=== PATIENT | female | born 1990 | race African-American/Black ===

== ENCOUNTER 2018-11-29 18:38 | Emergency (ER) | payer MEDICAID ==
[~2018-11-29] VITALS: Ht 172.7 cm; Wt 90.7 kg
[~2018-11-29 18:38] MED LIST: ALBUTEROL; ALBUTEROL SULF8.5 GM INH; ALBUTEROL2.5 MG/3 M HHN; ANTI-ITCH28 GM TOPIC; AZITHROMYCIN250 MG ORAL; DEXAMETHASONE2 MG PO; KEFLEX500 MG ORAL; PREDNISONE20 MG ORAL; PREDNISONE20 MG PO; ZITHROMAX250 MG PO
[2018-11-29] MEDS ORDERED: Ipratropium 0.02% Inh Soln 2.5ml UD HHN ONE (18:45)
[2018-11-29] MEDS ORDERED: Albuterol ud Inhalation HHN ONE (18:45)
[2018-11-29] MEDS ORDERED: Albuterol ud Inhalation ONE (18:46)
[2018-11-29] MEDS ORDERED: Ipratropium 0.02% Inh Soln 2.5ml UD ONE (18:46)
--- NOTE | 2018-11-29 18:50 | NUR ---
ED Nurse Note: Late entry. PT drove self to ED, ambulates without any assistive devices, wheezing on all lobes, received PT during Albuterol treatment, RT Jg at bedside, BP 132/78, HR 115 PT observed crying. Will continue to monitor.
[2018-11-29 18:58] VITALS: BP 132/78
--- NOTE | 2018-11-29 19:11 | NUR ---
ED Nurse Note: PT vomitted 125cc in bag.
--- NOTE | 2018-11-29 19:12 | NUR ---
HAND-OFF: Report and PT given to MARYCARMEN Whitney.
[2018-11-29 20:34] LABS: APPEARANCE,URINE CLOUDY; BILIRUBIN, URINE NEGATIVE (NEGATIVE); GLUCOSE, URINE (UA) NEGATIVE (NEGATIVE); KETONES,URINE NEGATIVE (NEGATIVE); LEUKOCYTE ESTERASE ,URINE 3+ (NEGATIVE); NITRITE,URINE NEGATIVE (NEGATIVE); PH,URINE 5 (4.5-8.0); PROTEIN,URINE 1+ (NEGATIVE); UROBILINOGEN,URINE 1 MG/DL (0.0-1.0)
[2018-11-29 20:38] LABS: COLOR,URINE YELLOW
--- NOTE | 2018-11-29 22:09 | Emergency Room Report ---
History of Present Illness General Chief Complaint: Asthma Source: Patient Present Illness HPI This patient has a history of asthma. She states that about an hour prior to arrival she developed shortness of breath and wheezing. She states that she is out of her albuterol. She denies recent illness. Denies cough or congestion. She denies fever chills. She denies nausea or vomiting. She also complains of dysuria for the past couple days. She has no other complaints. Allergies: Coded Allergies: AMOXICILLIN (Verified Allergy, Severe, 12/29/12) Patient History Past Medical History: see triage record, asthma Past Surgical History: none Pertinent Family History: none Social History: Denies: smoking, alcohol use, drug use Last Menstrual Period: 10/29/18 Reviewed Nursing Documentation: PMH: Agreed; PSxH: Agreed Nursing Documentation-PMH Past Medical History: No History, Except For Hx Cardiac Problems: No Hx Hypertension: No Hx Pacemaker: No Hx Asthma: Yes Hx COPD: No Hx Diabetes: No Hx Cancer: No Hx Gastrointestinal Problems: No Hx Dialysis: No Hx Neurological Problems: No Hx Cerebrovascular Accident: No Hx Seizures: No Review of Systems All Other Systems: negative except mentioned in HPI Physical Exam Vital Signs Date Time Temp Pulse Resp B/P (MAP) Pulse Ox O2 Delivery O2 Flow Rate FiO2 11/29/18 18:41 97.9 135 26 132/78 (96) 99 Room Air 11/29/18 18:56 21 Sp02 EP Interpretation: reviewed, normal General Appearance: no apparent distress, alert, GCS 15, non-toxic Head: normocephalic, atraumatic Eyes: bilateral eye normal inspection, bilateral eye PERRL ENT: hearing grossly normal, normal pharynx, no angioedema, normal voice Neck: full range of motion, supple/symm/no masses Respiratory: chest non-tender, no respiratory distress, no retraction, no accessory muscle use, wheezing, expiration Cardiovascular #1: regular rate, rhythm, no edema Rectal: deferred Musculoskeletal: back normal, gait/station normal, normal range of motion, non- tender Neurologic: alert, oriented x3, responsive, motor strength/tone normal, sensory intact, speech normal Psychiatric: judgement/insight normal, memory normal, mood/affect normal, no suicidal/homicidal ideation Skin: no rash, normal color Medical Decision Making Diagnostic Impression: Primary Impression: Asthma attack Additional Impression: UTI (urinary tract infection) ER Course This patient has a clinical presentation consistent with asthma exacerbation. Patient has a history of asthma and has wheezing on physical exam. The patient was given albuterol and Atrovent nebulizer treatments. The patient was also given prednisone orally. The patient had significant improvement in subjective shortness of breath. The patient's lung exam improved significantly. The patient was given close return precautions and followup instructions. Laboratory Tests Test 11/29/18 20:00 Urine Color Yellow Urine Appearance Cloudy Urine pH 5 (4.5-8.0) Urine Specific [place] 1.025 (1.005-1.035) Urine Protein 1+ (NEGATIVE) H Urine Glucose (UA) Negative (NEGATIVE) Urine Ketones Negative (NEGATIVE) Urine Blood 2+ (NEGATIVE) H Urine Nitrite Negative (NEGATIVE) Urine Bilirubin Negative (NEGATIVE) Urine Urobilinogen 1 MG/DL (0.0-1.0) H Urine Leukocyte Esterase 3+ (NEGATIVE) H Urine RBC 15-20 /HPF (0 - 2) H Urine WBC 10-15 /HPF (0 - 2) H Urine Squamous Epithelial Cells Many /LPF (NONE/OCC) H Urine Bacteria Many /HPF (NONE) H Chest X-Ray Diagnostic Results Chest X-Ray Diagnostic Results : Chest X-Ray Ordered: Yes # of Views/Limited/Complete: 1 View Indication: Shortness of Breath EP Interpretation: Yes Interpretation: no consolidation, no effusion, no pneumothorax, no acute cardiopulmonary disease Impression: No acute disease Electronically Signed by: Candida Zacarias DO Last Vital Signs Date Time Temp Pulse Resp B/P (MAP) Pulse Ox O2 Delivery O2 Flow Rate FiO2 11/29/18 20:01 97.9 11/29/18 19:01 109 31 Room Air 11/29/18 18:58 132/78 99 11/29/18 18:56 21 Status: improved Disposition: HOME, SELF-CARE Condition: Improved Referrals: NOT CHOSEN [facility]/,REFERRING (PCP) Patient Instructions: Asthma, Adult Candida Zacarias DO Nov 29, 2018 22:09
--- NOTE | 2018-11-29 22:13 | NUR ---
ED Nurse Note: Pt is side laying with eyes closed, non-labored breathing, no signs of distress. Will continue to monitor
[2018-11-29] MEDS ORDERED: NITROFURANTOIN100 M2 ORAL (22:19)
[2018-11-29] MEDS ORDERED: PREDNISONE20 MG ORAL (22:19)
[2018-11-29] MEDS ORDERED: ALBUTEROL SULF8.5 GM INH (22:19)
[2018-11-29] MEDS ORDERED: ALBUTEROL2.5 MG/3 M HHN (22:31)
[2018-11-29 22:35] VITALS: BP 132/78
--- NOTE | 2018-11-29 22:35 | NUR ---
ER DISCHARGE NOTE: Patient is cleared to be discharged per ERMD, pt is aox4, on room air, with stable vital signs. pt was given dc and prescription instructions, pt was able to verbalize understanding, pt id band removed. pt is able to ambulate with steady gait. pt took all belongings.
--- NOTE | 2018-11-30 10:28 | Diagnostic Imaging Report ---
Indication: Shortness of breath Technique: XRAY Chest 1v Comparison: None Findings: Heart size and mediastinal contours within normal limits. There is no focal airspace consolidation, pleural effusion or pneumothorax. No acute osseous normality. Abdominal shield in place. Impression: No radiographic evidence of acute cardiopulmonary disease.
== END 2018-11-29 22:35 | disposition home or self-care (01) ==
LOC: EMR 19:14
DX: J45.901 Unspecified asthma with (acute) exacerbation (principal); N39.0 Urinary tract infection, site not specified; Z88.1 Allergy status to other antibiotic agents; Z79.51 Long term (current) use of inhaled steroids
CPT/HCPCS: 71045; 81001; 87086; 94640; 94664; J7512; Z7502; 99284

== ENCOUNTER 2019-02-13 16:12 | Emergency (ER) | payer MEDICAID ==
[~2019-02-13] VITALS: Ht 160 cm; Wt 81.6 kg
[~2019-02-13 16:12] MED LIST changes: +NITROFURANTOIN100 M2 ORAL
--- NOTE | 2019-02-13 16:22 | NUR ---
ED Nurse Note: Patient walked into ED from home c/o lower back pain radiating down to her pelvis for 3 days. patient denies any injury. patient is a/o x4 ambualtory steady gait, breathing unlabored and even, speaking in full sentences. patient provided with pillow.
[2019-02-13] MEDS ORDERED: Ketorolac 30mg Inj IM ONE (16:45)
[2019-02-13] MEDS ORDERED: Methocarbamol 750mg tab ORAL ONE (16:45)
--- NOTE | 2019-02-13 16:55 | Emergency Room Report ---
History of Present Illness General Chief Complaint: Lower Back Pain or Injury Present Illness HPI 29-year-old female with no significant past medical history here complaining exacerbation of right low back and hip pain now radiating to the foot and causing tingling. Patient reports that she has been seen by primary care physician for this before and been told he needs referral to physical therapy. Denies any imaging or fall or trauma. Patient reports that the pain is worse when sitting and standing. Patient reports improvement of pain when walking. Patient is morbidly obese and reports that she has a sedentary lifestyle. Denies any calf tenderness, chest pain, shortness of breath, palpitation, abdominal pain, nausea vomiting. Rating the pain 10 out of 10 with radiation at this time. Has been taking [id number] Tylenol with minimal relief. Patient denies at this time Allergies: Coded Allergies: AMOXICILLIN (Verified Allergy, Severe, 12/29/12) Patient History Past Medical History: see triage record Past Surgical History: none Pertinent Family History: none Last Menstrual Period: 01/2019 Now: No Immunizations: UTD Reviewed Nursing Documentation: PMH: Agreed; PSxH: Agreed Nursing Documentation-PMH Hx Cardiac Problems: No Hx Hypertension: No Hx Pacemaker: No Hx Asthma: Yes Hx COPD: No Hx Diabetes: No Hx Cancer: No Hx Gastrointestinal Problems: No Hx Dialysis: No Hx Neurological Problems: No Hx Cerebrovascular Accident: No Hx Seizures: No Review of Systems All Other Systems: negative except mentioned in HPI Physical Exam Vital Signs Date Time Temp Pulse Resp B/P (MAP) Pulse Ox O2 Delivery O2 Flow Rate FiO2 02/13/19 16:15 98.2 118 16 103/65 (78) 97 Room Air Sp02 EP Interpretation: reviewed, normal General Appearance: no apparent distress, alert, GCS 15, non-toxic, obese Head: normocephalic, atraumatic Eyes: bilateral eye normal inspection, bilateral eye PERRL ENT: hearing grossly normal, normal pharynx, no angioedema, normal voice Neck: full range of motion, supple/symm/no masses Respiratory: chest non-tender, lungs clear, normal breath sounds, no rhonchi, no respiratory distress, no retraction, no wheezing, speaking full sentences Cardiovascular #1: regular rate, rhythm, no edema, no murmur, normal capillary refill Cardiovascular #2: 2+ dorsalis pedis (R), 2+ dorsalis pedis (L) Gastrointestinal: normal bowel sounds, non tender, soft, non-distended, no guarding, no rebound Genitourinary: no CVA tenderness Musculoskeletal: back normal, normal range of motion, digits/nails normal, no calf tenderness, pelvis stable, gait/station normal, Betzy's Sign negative, other - Right straight leg test positive Neurologic: alert, motor strength/tone normal, oriented x3, sensory intact, responsive, speech normal Psychiatric: judgement/insight normal, memory normal, mood/affect normal, no suicidal/homicidal ideation Skin: no rash Lymphatic: no adenopathy Medical Decision Making PA Attestation Diagnosis and treatment plans were reviewed and discussed with my supervising physician Dr. Brumfield Diagnostic Impression: Primary Impression: Sciatica of right side ER Course 29-year-old female with no significant past medical history here complaining exacerbation of right low back and hip pain now radiating to the foot and causing tingling. Patient reports that she has been seen by primary care physician for this before and been told he needs referral to physical therapy. Denies any imaging or fall or trauma. Patient reports that the pain is worse when sitting and standing. Patient reports improvement of pain when walking. Patient is morbidly obese and reports that she has a sedentary lifestyle. Denies any calf tenderness, chest pain, shortness of breath, palpitation, abdominal pain, nausea vomiting. Rating the pain 10 out of 10 with radiation at this time. Has been taking [id number] Tylenol with minimal relief. Patient denies at this time Ddx considered but are not limited to: Lumbar spine sprain, strain, fracture, contusion, neuropathy, sciatica Vital signs: are WNL, pt. is afebrile H&PE are most consistent with: Sciatica right side ORDERS: Ibuprofen, Robaxin, lidocaine patch ER intervention: Toradol, Robaxin, lidocaine patch DISCHARGE: At this time pt. is stable for d/c to home. Will provide printed patient care instructions, and any necessary prescriptions. Care plan and follow up instructions have been discussed with the patient prior to discharge. Patient to follow-up with primary care provider for referral to promotions specialist as well as physical therapy. Avoid sedentary lifestyle, possible MRI to be requested by primary care if pain continues to be chronic. No x-rays necessary at this time as patient has a clinical presentation of sciatic pain and pain has been chronic for few months now. Last Vital Signs Date Time Temp Pulse Resp B/P (MAP) Pulse Ox O2 Delivery O2 Flow Rate FiO2 02/13/19 16:15 98.2 118 16 103/65 (78) 97 Room Air Disposition: HOME, SELF-CARE Condition: Stable Scripts Lidocaine Patch* (Lidoderm Patch*) 1 Each Adh..patch 1 PATCH TOPIC DAILY, #7 PATCH 0 Refills Patch(es) may remain in place for up to 12 hours in any 24-hour period. Prov: Megha Dillard 02/13/19 Methocarbamol* (ROBAXIN-500*) 500 Mg Tablet 500 MG ORAL TID PRN for For Pain, #15 TAB 0 Refills Prov: Megha Dillard 02/13/19 Ibuprofen (Ibu) 800 Mg Tablet 800 MG PO TID, #30 TAB Prov: Megha Dillard 02/13/19 Referrals: NOT CHOSEN [facility]/MD,REFERRING (PCP) Patient Instructions: Sciatica With Rehab[facility] Additional Instructions: Take medication as directed, follow-up with your primary care provider for referral to promotions specialist and physical therapy. If worsening symptoms return to the emergency room. At this time no imaging is needed however if your pain continues to be chronic your primary doctor to request an MRI. Megha Dillard Feb 13, 2019 16:55
[2019-02-13] MEDS ORDERED: IBU800 MG PO (16:56)
[2019-02-13] MEDS ORDERED: LIDODERM700 M1 TOPIC (16:56)
[2019-02-13] MEDS ORDERED: ROBAXIN-500MG ORAL (16:56)
[2019-02-13 17:02] VITALS: BP 112/62
[2019-02-13 17:08] VITALS: BP 112/62
--- NOTE | 2019-02-13 17:08 | NUR ---
ER DISCHARGE NOTE: Patient is cleared to be discharged per LALITHA BERNSTEIN, pt is aox4, on room air, with stable vital signs. pt was given dc and prescription instructions, pt was able to verbalize understanding, pt id band removed without complications. pt is able to ambulate with steady gait. pt took all belongings.
== END 2019-02-13 17:10 | disposition home or self-care (01) ==
LOC: EMR 16:48
DX: M54.31 Sciatica, right side (principal); Z88.0 Allergy status to penicillin
CPT/HCPCS: 96372; J1885; Z7502; 99283